=== PATIENT | male | born 1985 | race Caucasian/White ===

== ENCOUNTER 2016-09-23 20:43 | Emergency (ER) | payer OTHER ==
[2016-09-23 21:26] VITALS: BP 115/72
[2016-09-23] MEDS ORDERED: Amoxicillin/Clavulanate TAB* 875 MG PO ONE (22:26)
[2016-09-23] MEDS ORDERED: Acetaminop/Codeine 30 MG TAB* 1 TAB (300 MG/30 MG) PO ONE (22:26)
--- NOTE | 2016-09-23 22:29 | UC ---
Skin Complaint HPI - HPI Summary HPI Summary: 30 male presents with complaints of redness, swelling and pain to his right forearm after being bit by his cat yesterday 09/23/16. Patient states it is his cat who has his vaccinations and is an indoor cat. Patient has been taking ibuprofen 800mg without any relief. Last dose 1300 today. Staes he was bit once , denies open wounds or laceration currently. Does admit to multiple scratches from cat. Denies fever/chills. States the swelling and redness has worsened over the course of one day. Denies PMHx. No other complaints or injuries. Is able to move entire upper extremity. Pain is 10/10 and an ache. Denies numbness/ tingling. - History of Current Complaint Chief Complaint: UCBiteInjury Time Seen by Provider: 09/23/16 22:01 Stated Complaint: CAT BITE Hx Obtained From: Patient Onset/Duration: Sudden Onset, Lasting Days - 2, Worse Since Skin Exposure Onset/Duration: Days Ago - 1 Timing: Constant Onset Severity: Moderate Current Severity: Severe Pain Intensity: 10 Pain Scale Used: 0-10 Numeric Location: Other - right wrist/forearm Character: Swelling, Pain, Redness, Painful Aggravating: Nothing, Touch Alleviating: Nothing Associated Signs & Symptoms: Positive: Rash, Red Streaks Related History: Possible Reaction to: Animal - cat bite - Allergy/Home Medications Allergies/Adverse Reactions: Allergies Allergy/AdvReac Type Severity Reaction Status Date / Time No Known Allergies Allergy Verified 09/23/16 21:11 Home Medications: Home Medications Venlafaxine ER (NF) [Effexor ER (NF)] 150 mg PO DAILY 09/23/16 [History Confirmed 09/23/16] Review of Systems Constitutional: Negative Skin: Rash - redness, swelling, pain at right forearm ENT: Negative Respiratory: Negative Cardiovascular: Negative Gastrointestinal: Negative Motor: Negative Neurovascular: Negative Musculoskeletal: Edema - right forearm Neurological: Negative All Other Systems Reviewed And Are Negative: Yes PMH/Surg Hx/FS Hx/Imm Hx - Additional Past Medical History Additional PMH: Denies DM, HTN and Asthma, denies PMhx. - Surgical History Surgical History: None - Family History Known Family History: Positive: None - Social History Alcohol Use: Rare Substance Use Type: None Smoking Status (MU): Current Every Day Smoker Type: Cigarettes Amount Used/How Often: 1/2 PPD Length of Time of Smoking/Using Tobacco: 14 YRS Have You Smoked in the Last Year: Yes Household Exposure Type: Cigarettes - Immunization History Most Recent Influenza Vaccination: 2016 Most Recent Tetanus Shot: UTD Vaccination Up to Date: Yes Physical Exam Triage Information Reviewed: Yes Appearance: Well-Appearing, No Pain Distress, Well-Nourished Vital Signs: Initial Vital Signs Temp 99.4 F 09/23/16 21:14 Pulse 84 09/23/16 21:14 Resp 18 09/23/16 21:14 BP 115/72 09/23/16 21:14 Pulse Ox 99 09/23/16 21:14 Vital Signs Reviewed: Yes Eyes: Positive: Conjunctiva Clear ENT: Positive: Normal ENT inspection, Hearing grossly normal, Pharynx normal Dental: Negative: Cervical Lymphadenopathy Neck: Positive: Supple, Nontender, No Lymphadenopathy Respiratory: Positive: Chest non-tender, Lungs clear, Normal breath sounds, No respiratory distress, No accessory muscle use. Negative: Crackles, Rhonchi, Wheezing Cardiovascular: Positive: RRR, No Murmur, Pulses Normal - 2+, Brisk Capillary Refill - <2seconds Abdomen Description: Positive: Nontender, Soft Bowel Sounds: Positive: Present Musculoskeletal: Positive: Strength Intact, ROM Intact, Edema @ - right forearm/ wrist Neurological: Positive: Alert, Muscle Tone Normal Psychological Exam: Normal Skin: Positive: rashes - erythematous, edematous and painful rash to right forearm and wrist, with an apparent red streak traveling down forearm surrounding cat bite. 2 puncture wounds noted healed and no longer open, was irrigated as much as possible. Scratches noted to same area. No bleeding or open wounds. Warm to touch, not hot. Rest of skin exam normal. Course/Dx - Course Course Of Treatment: appears to be having reaction and infection from cat bite that occurred yesterday. Will be started on Augmentin, first dose given at office. No fever. Patient was educated and is aware of worsening signs and symptoms. If symptoms do not improve within 1-2 days to go straight to ER as this infection can worsen and infect blood. Did not appear to need IV antibiotics at this time, however told it could change if symptoms do not improve with augmentin. Continue ibuprofen for pain and swelling, cool compresses. Follow up and re-check with PCP or return to within 1 week. No discharge available to culture. Wound was irrigated as much as possible. - Differential Diagnoses - Skin Complaint Differential Diagnoses: Abscess, Allergic Reaction, Anaphylaxis, Cellulitis, Contact Dermatitis, Local Allergic Reaction, MRSA, Urticaria, Viral Exanthem - Diagnoses Provider Diagnoses: cat bite, cellulitis Discharge - Discharge Plan Condition: Stable Disposition: HOME Prescriptions: Amoxicillin/Clavulanate TAB* [Augmentin TAB 875*] 875 mg PO BID #27 tab Ibuprofen TAB* [Motrin TAB* 800 MG] 800 mg PO Q6H #30 tab Patient Education Materials: Animal Bite (ED), Cellulitis (ED) Referrals: CARA Masters [Primary Care Provider] - Additional Instructions: Take prescribed antibiotic as directed until entire dose is finished, even if symptoms improve. If any of your symptoms worsen in the next day, including more pain, redness, increased streaking, warmth, fever/chills go straight to Emergency Room as this infection can worsen. Continue use of ibuprofen for pain and inflammation, take with food to avoid upset stomach. Follow up and get re-checked either at convenient care or primary care provider within 5 days, unless it worsens.
== END 2016-09-23 22:59 | disposition home or self-care (01) ==
LOC: UCCORT 20:43
DX: S51.831A Puncture wound without foreign body of right forearm, initial encounter (principal); L03.113 Cellulitis of right upper limb; W55.01XA Bitten by cat, initial encounter; Y93.9 Activity, unspecified; Y92.9 Unspecified place or not applicable; F17.210 Nicotine dependence, cigarettes, uncomplicated
CPT/HCPCS: 99212; A9270-GY; G0463

== ENCOUNTER → 2019-02-17 21:46 | Emergency (ER) | payer SELFPAY | END | disposition left against medical advice (07) | LOC: UCCORT 21:46 | DX: Z53.21 Procedure and treatment not carried out due to patient leaving prior to being seen by health care provider (principal) ==